=== PATIENT | male | born 1985 | race Caucasian/White ===

== ENCOUNTER 2023-03-19 17:35 | Emergency (ER) | payer MEDICAID ==
[~2023-03-19] VITALS: Ht 172.7 cm; Wt 76.1 kg
[2023-03-19 17:48] VITALS: TEMP 99.2
[2023-03-19] MEDS ORDERED: ibuprofen tablet 400 MG TABLET PO ONE (20:20)
[2023-03-19] MEDS ORDERED: amox tr/potassium clavulanate 875/125mg TAB PO STA (20:31)
[2023-03-19] MEDS ORDERED: AMOX-117 PO (20:35)
[2023-03-19 20:44] VITALS: BP 144/99; PULSE 67; RESP 18; O2SAT 98
== END 2023-03-19 20:45 | disposition home or self-care (01) ==
LOC: ER 17:35
DX: K04.7 Periapical abscess without sinus (principal); Z79.2 Long term (current) use of antibiotics
CPT/HCPCS: 99283